=== PATIENT | female | born 1985 | race Caucasian/White ===

== ENCOUNTER 2022-02-19 08:29 | Outpatient (CLI) | payer OTHER ==
[2022-02-19] MEDS ORDERED: Acetaminophen 500 MG TAB ONE (08:46)
[2022-02-19] MEDS ORDERED: Acetaminophen 500 MG TAB PO SCH (09:45)
[2022-02-19] MEDS ORDERED: Iron Sucrose Complex 500 MG in Sodium Chloride 0.9% 250 ML 250 ML IVPB SCH (09:45)
== END 2022-02-19 14:30 | disposition home or self-care (01) ==
LOC: CSHSDC/OP 08:29
PROVIDERS: ATTEND Student in an Organized Health Care Education/Training Program
DX: O99.019 Anemia complicating pregnancy, unspecified trimester (principal)
CPT/HCPCS: J1756; J7050

== ENCOUNTER 2022-02-20 14:44 | Day surgery (SDC) | payer OTHER ==
[2022-02-20] MEDS ORDERED: Calcium Carbonate 500 MG ChewTAB PO SCH (15:45)
[2022-02-20] MEDS ORDERED: hydrALAZINE 20 MG/ML VIAL SLOW IVP PRN (15:45)
[2022-02-20 15:56] VITALS: BMI 31.3
== END 2022-02-20 17:20 | disposition home or self-care (01) ==
LOC: CSHLD/OP 14:44
PROVIDERS: ATTEND Emergency Medicine
DX: O47.1 False labor at or after 37 completed weeks of gestation (principal); O99.820 Streptococcus B carrier state complicating pregnancy; O99.613 Diseases of the digestive system complicating pregnancy, third trimester; K21.9 Gastro-esophageal reflux disease without esophagitis; O99.891 Other specified diseases and conditions complicating pregnancy; N89.8 Other specified noninflammatory disorders of vagina; O99.013 Anemia complicating pregnancy, third trimester; O09.33 Supervision of pregnancy with insufficient antenatal care, third trimester; O09.523 Supervision of elderly multigravida, third trimester; Z3A.37 37 weeks gestation of pregnancy; Z88.0 Allergy status to penicillin; Z88.5 Allergy status to narcotic agent; Z88.6 Allergy status to analgesic agent
CPT/HCPCS: 87480; 87491; 87510; 87591; 87660

== ENCOUNTER 2022-02-22 19:27 | Day surgery (SDC) | payer OTHER ==
[2022-02-22 20:10] VITALS: BMI 31.3
[2022-02-22] MEDS ORDERED: Acetaminophen 325 MG TAB PO PRN (22:51)
[2022-02-22] MEDS ORDERED: hydrALAZINE 20 MG/ML VIAL SLOW IVP PRN (22:51)
[2022-02-22] MEDS ORDERED: Ondansetron ODT 4 MG TAB PO PRN (22:51)
== END 2022-02-23 00:10 | disposition home or self-care (01) ==
LOC: CSHLD/OP 19:27
PROVIDERS: ATTEND Obstetrics & Gynecology
DX: O47.1 False labor at or after 37 completed weeks of gestation (principal); O99.891 Other specified diseases and conditions complicating pregnancy; N89.8 Other specified noninflammatory disorders of vagina; R10.2 Pelvic and perineal pain; R11.0 Nausea; O99.413 Diseases of the circulatory system complicating pregnancy, third trimester; R00.0 Tachycardia, unspecified; O99.013 Anemia complicating pregnancy, third trimester; O09.293 Supervision of pregnancy with other poor reproductive or obstetric history, third trimester; O09.523 Supervision of elderly multigravida, third trimester; Z3A.37 37 weeks gestation of pregnancy; Z86.14 Personal history of Methicillin resistant Staphylococcus aureus infection; Z88.0 Allergy status to penicillin; Z88.5 Allergy status to narcotic agent; Z88.6 Allergy status to analgesic agent

== ENCOUNTER 2022-02-25 11:10 | Inpatient (IN) | payer OTHER ==
[~2022-02-25 11:10] MED LIST: Bupivacaine 0.25% HCL 30 ML VIAL ONE
[2022-02-25 11:39] VITALS: BMI 30.4
[2022-02-25] MEDS ORDERED: hydrALAZINE 20 MG/ML VIAL SLOW IVP PRN (12:21)
[2022-02-25] MEDS ORDERED: Ondansetron PF 4 MG/2 ML Vial IVP PRN ×2 (12:28→14:18)
[2022-02-25] MEDS ORDERED: Promethazine HCl 25 MG/ML VIAL IM PRN ×2 (12:28→14:18)
[2022-02-25] MEDS ORDERED: Ondansetron ODT 4 MG TAB PO PRN (12:28)
[2022-02-25] MEDS ORDERED: Lidocaine 1% (PF) 30 ML VIAL SC PRN (12:28)
[2022-02-25] MEDS ORDERED: NS w/ Oxytocin 30 units 500 ML IV SCH (12:30)
[2022-02-25 12:46] LABS: Hemoglobin 10.6 g/dL (12.0-15.5); Mean Corpuscular HGB CONC 32.6 g/dL (32.0-36.0); Mean Corpuscular Hemoglobin 27.9 pg (27.0-33.0); Mean Corpuscular Volume 85.5 fl (81.6-98.3); Mean Platelet Volume 9.7 fl (7.4-10.4); Platelet Count 282 10x3/uL (150-450); RBC Distribution Width 17.2 % (11.5-14.5); White Blood Cell (WBC) Count 19.5 10x3/uL (3.5-10.5)
[2022-02-25] MEDS ORDERED: Fentanyl 2 mcg/Bup 0.1% Cadd 100 ML ONE (12:47)
[2022-02-25] MEDS ORDERED: Vancomycin HCl 1 GM in Sodium Chloride 0.9% 250 ML 250 ML IVPB SCH (12:56)
[2022-02-25] MEDS ORDERED: Vancomycin 1 GM in Premix Bag 1 BAG IVPB SCH ×2 (13:00→21:00)
[2022-02-25 13:47] LABS: Hep B Surf Ag Non-Reactive S/CO (NonReactive)
[2022-02-25 13:50] LABS: Syphilis Antibody Nonreactive (Nonreactive); Syphilis Antibody Index 0.04 S/CO (<1.00 Non-Reactive)
[2022-02-25 13:54] LABS: HBSAg Index 0.21 S/CO (0-0.99)
[2022-02-25] MEDS ORDERED: diphenhydrAMINE 50 MG/ML VIAL ONE (14:11)
[2022-02-25] MEDS ORDERED: Naloxone HCl 0.4 mg/ml Vial IVP PRN ×2 (14:18)
[2022-02-25] MEDS ORDERED: Lactated Ringer's 500 ML IV PRN (14:18)
[2022-02-25] MEDS ORDERED: diphenhydrAMINE 50 MG/ML VIAL IVP PRN (14:18)
[2022-02-25] MEDS ORDERED: ePHEDrine Sulfate 50 MG/10 ML VIAL SLOW IVP PRN (14:18)
[2022-02-25] MEDS ORDERED: Moisturizing Cream (Eucerin) 113 GM JAR TOP PRN (14:18)
[2022-02-25] MEDS ORDERED: Acetaminophen 325 MG TAB PO PRN ×2 (14:18→18:31)
[2022-02-25] MEDS ORDERED: Communication Order-Pharmacy FS SCH (14:30)
[2022-02-25] MEDS ORDERED: Fentanyl 2 mcg/Bupivacaine 0.1% Cassette 100 ML EPIDURAL SCH (14:30)
[2022-02-25 15:47] LABS: Amphetamine Not Detected (NotDetected); Barbiturates Screen Not Detected (NotDetected); Benzodiazepine Screen Not Detected (NotDetected); Cocaine Metabolite Screen Not Detected (NotDetected); Methadone Not Detected (NotDetected); Methamphetamine Not Detected (NotDetected); Opiate Screen Not Detected (NotDetected); Oxycodone Screen Not Detected (NotDetected); Phencyclidine (PCP) Not Detected (NotDetected); THC/Cannabinoid Screen Not Detected (NotDetected); Tricyclic Screen Not Detected (NotDetected)
[2022-02-25 15:48] LABS: SARS-CoV-2 NAA Rapid Test Not Detected (NotDetected)
[2022-02-25] MEDS ORDERED: Carboprost 250 MCG/ML AMP ONE (19:23)
[2022-02-25] MEDS ORDERED: Methylergonovine 0.2 MG/ML VIAL ONE (19:23)
[2022-02-25] MEDS ORDERED: Ibuprofen 800 MG TAB PO PRN (20:59)
[2022-02-25] MEDS ORDERED: Clindamycin/D5W 900 MG in Premix Bag 1 BAG IVPB SCH (21:15)
[2022-02-25] MEDS: Misoprostol 200 MCG TAB ONE ×2 (21:53→21:54)
[2022-02-26] MEDS ORDERED: Vancomycin HCl 1 GM in Sodium Chloride 0.9% 250 ML 250 ML IVPB SCH (01:00)
[2022-02-26] MEDS ORDERED: diphenhydrAMINE 25 MG CAP PO PRN (02:48)
[2022-02-26] MEDS ORDERED: hydrALAZINE 20 MG/ML VIAL SLOW IVP PRN (02:48)
[2022-02-26] MEDS ORDERED: Lanolin Ointment 7 GM TUBE TOP PRN (02:48)
[2022-02-26] MEDS ORDERED: Milk Of Magnesia 30 ML UDCUP PO PRN (02:48)
[2022-02-26] MEDS ORDERED: Boostrix 0.5 ML (Tdap) VIAL IM ONE (02:48)
[2022-02-26] MEDS ORDERED: Preparation H Ointment 28 GM TUBE PR PRN (02:48)
[2022-02-26] MEDS ORDERED: Bisacodyl 10 MG SUPP PR PRN (02:48)
[2022-02-26] MEDS ORDERED: Docusate 100 MG CAP PO SCH ×2 (03:00→14:00)
[2022-02-26] MEDS: Lactated Ringer's 1,000 ML IV SCH ×4 (04:05→15:49)
[2022-02-26] MEDS: Ibuprofen 800 MG TAB PO SCH ×3 (06:02→21:32)
[2022-02-26] MEDS: Prenatal Vitamin 1 TAB PO SCH (09:40)
[2022-02-26] MEDS: Ferrous Sulfate 325 MG TAB PO SCH ×2 (09:40→18:42)
[2022-02-26] MEDS: Docusate 100 MG CAP PO SCH (21:32)
[2022-02-27] MEDS: Lactated Ringer's 1,000 ML IV SCH (05:34)
[2022-02-27] MEDS: Ibuprofen 800 MG TAB PO SCH (06:00)
[2022-02-27] MEDS: Ferrous Sulfate 325 MG TAB PO SCH (07:34)
[2022-02-27 07:41] VITALS: BP 103/55; TEMP 97.7
[2022-02-27] MEDS: Docusate 100 MG CAP PO SCH (08:55)
[2022-02-27] MEDS: Prenatal Vitamin 1 TAB PO SCH (08:55)
== END 2022-02-27 14:30 | disposition home or self-care (01) | DRG 807 ==
LOC: CSHLD/OP 11:10 → CSHLD 13:33 → CSHPED 02-26 02:35
PROVIDERS: ADMIT Family Medicine; ATTEND Family Medicine
PROC: 10E0XZZ Delivery of Products of Conception, External Approach (ICD-10-PCS; principal; 2022-02-25)
PROC: 10D17Z9 Manual Extraction of Products of Conception, Retained, Via Natural or Artificial Opening (ICD-10-PCS; 2022-02-25)
PROC: 10907ZC Drainage of Amniotic Fluid, Therapeutic from Products of Conception, Via Natural or Artificial Opening (ICD-10-PCS; 2022-02-25)
PROC: 10H07YZ Insertion of Other Device into Products of Conception, Via Natural or Artificial Opening (ICD-10-PCS; 2022-02-25)
DX: O99.824 Streptococcus B carrier state complicating childbirth (principal); Z37.0 Single live birth; Z3A.37 37 weeks gestation of pregnancy; D64.9 Anemia, unspecified; O99.02 Anemia complicating childbirth; Z90.49 Acquired absence of other specified parts of digestive tract; Z90.89 Acquired absence of other organs; Z88.6 Allergy status to analgesic agent; Z88.0 Allergy status to penicillin; Z88.8 Allergy status to other drugs, medicaments and biological substances; O69.89X0 Labor and delivery complicated by other cord complications, not applicable or unspecified
CPT/HCPCS: 51702; 80306; 85027; 86780; 86850; 86900; 86901; 87340; 99285; J1200; J2590; J3370; J3490; S0020; U0002